=== PATIENT | female | born 1960 | race Hispanic/Latino ===

== ENCOUNTER 2017-02-21 13:52 | Observation (INO) | payer MEDICAID ==
[2017-02-21 13:52] VITALS: BMI 21.7
[2017-02-21 14:28] VITALS: RESP 16
--- NOTE | 2017-02-21 14:42 | ED PDOC ---
HPI: Back Time Seen by Provider: 02/21/17 14:29 Chief Complaint (Nursing): Back Pain Chief Complaint (Provider): Back Pain, left leg pain History Per: Patient History/Exam Limitations: no limitations Onset/Duration Of Symptoms: Days Current Symptoms Are (Timing): Still Present Quality Of Discomfort: "Pain" Previous Symptoms: Back Pain Associated Symptoms: None Additional Complaint(s): Rosanna Burrell, a 56 year old female who presents to the ED complaining of back pain radiating down her left leg. Patient is under the care of Dr. Foster, pain management and he gave patient trigger point injections last week in office. She was feeling better until yesterday when she developed severe pain to left leg. She called Dr. Foster's office and was told to come to ED today. Patient denies bowel/bladder incontinence. She takes oxycodone 30 mg and MS contin daily and these meds are not providing adequate pain relief. Patient denies any fall or trauma. PMD: Dr. Lew Past Medical History Reviewed: Historical Data, Nursing Documentation, Vital Signs Vital Signs: Last Vital Signs Temp 98.0 F 02/21/17 14:25 Pulse 93 H 02/21/17 14:25 Resp 16 02/21/17 14:25 BP 128/82 02/21/17 14:25 Pulse Ox 99 02/21/17 14:25 - Medical History PMH: Anxiety, Back Problems, Chronic Kidney Disease - Surgical History Surgical History: Back Surgery Other surgeries: Hysterectomy; lithotripsy, breast augmentation - Family History Family History: States: No Known Family Hx - Living Arrangements Living Arrangements: With Family - Social History Current smoker - smoking cessation education provided: Yes Alcohol: None Drugs: Denies - Home Medications Home Medications: Ambulatory Orders Medication Instructions Recorded Oxycodone HCl [Roxicodone] 30 mg PO Q8 PRN 07/31/14 Lactulose [Generlac] 10 gm PO DAILY 04/14/16 Morphine Sulfate [Ms Contin] 30 mg PO Q12 04/14/16 Oxycodone HCl [Roxicodone] 30 mg PO Q8 PRN 04/14/16 Varenicline Tartrate [Chantix] 1 mg PO BID 04/14/16 diaZEpam [Valium] 10 mg PO QID PRN 04/14/16 oxyCODONE [oxycodone Hydrochloride] 45 mg PO BID 04/14/16 - Allergies Allergies/Adverse Reactions: Allergies Allergy/AdvReac Type Severity Reaction Status Date / Time ketorolac Allergy HEADACHE Verified 04/14/16 11:25 Review of Systems ROS Statement: Except As Marked, All Systems Reviewed And Found Negative Constitutional: Negative for: Fever, Weakness Cardiovascular: Negative for: Chest Pain Gastrointestinal: Negative for: Vomiting Genitourinary Female: Negative for: Incontinence (Denies bowel and bladder incontinence) Musculoskeletal: Positive for: Back Pain (Back pain radiating down left leg) Neurological: Negative for: Weakness, Numbness, Incoordination Physical Exam - Reviewed Nursing Documentation Reviewed: Yes Vital Signs Reviewed: Yes - Physical Exam Appears: Positive for: Non-toxic, No Acute Distress Skin: Positive for: Normal Color, Warm, Dry. Negative for: Rash Eye Exam: Positive for: Normal appearance Neck: Positive for: Normal, Painless ROM Cardiovascular/Chest: Positive for: Regular Rate, Rhythm Respiratory: Positive for: Normal Breath Sounds Back: Positive for: Vertebral Tenderness (lower lumbar region), Other (positive straight left leg raise at 20 degrees). Negative for: L CVA Tenderness, R CVA Tenderness Neurologic/Psych: Positive for: Alert, Oriented - ECG O2 Sat by Pulse Oximetry: 99 (RA) Pulse Ox Interpretation: Normal - Other Rad MRI LS Spine X-Ray: Read By Radiologist X-Ray Interpretation: see below Medical Decision Making Medical Decision Making: Initial Impression: 56 year old female with back pain and left leg pain Initial Plan: Case was d/w Dr. Foster, pain management. He states to order MRI lumbar spine and give patient 1 mg IV dilaudid for pain. * Spinal Canal Lumbar w/o Cont * Dilaudid 1mg IV * NS 1000mls IV 1000mls/hr * Admit to ED observation MRI: T12-L1: No disc herniation, spinal canal stenosis or neural foraminal narrowing. L1-2: Mild generalized disc bulge is appreciated at L1-2 as well as prominent facet joint arthropathy resulting in [id number] bilateral lateral recess stenoses mild bilateral neural foraminal stenoses. No disc herniation identified. L2-3: At L2-3, a mild to moderate central canal stenosis caused by gross facet joint arthropathy and limited generalized disc bulging without disc herniation. Mild bilateral neural foraminal stenosis also identified. L3-4: No disc herniation is identified although mild central canal stenosis results from facet arthropathy combining with a jrcs-gv-karpdzsc generalized disc bulge causing [id number] central canal stenosis concentrated at the lateral recesses symmetrically. Mild bilateral neural foraminal stenosis identified. L4-5: No epidural defects are appreciated grossly Zoë though hardware generates artifact distorting the posterior epidural space to the right and somewhat anteriorly as well. The epidural spaces decompressed by bilateral L5 laminectomies. Neural foramina appear adequately patent as imaged. 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 No suspicious epidural defects are identified grossly. A tiny use meningocele is suggested at the left posterior epidural space. OTHER FINDINGS: None. IMPRESSION: 1. Bilateral laminectomies are identified at L5 and S1 with post spinal fusion from L4-S1 inclusively noted. 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 2. No interval disc herniation or severe spinal stenosis identified. 3. Multilevel degenerative central stenosis is appear mild to moderate severity at L2-3 and L3-4. ____ Scribe Attestation Documented by Adia Bentley acting as a scribe for Jihan Arrieta PA-C. Scribe Attestation All medical record entries made by the Scribe were at my direction and personally dictated by me. I have reviewed the chart and agree that the record accurately reflects my personal performance of the history, physical exam, medical decision making, and the department course for this patient. I have also personally directed, reviewed, and agree with the discharge instructions and disposition. ED OBSERVATION Date of observation admission: 02/21/17 Time of observation admission: 15:42 - Observation admission statement Patient is being placed in observation because:: Severe low back pain, sent by clock and watch hands painter. - Goals of Observation Goals of observation are:: Monitor patient and manage pain while awaiting work up for severe low back pain , MRI ordered. - Progress Note Progress Note: 02/21/17 15:43 Patient received IV dilaudid, states she feels better after med was given. Patient awaiting MRI 02/21/17 16:47 Patient returned from MRI, she states pain is adequately controlled at this time. MRI results pending. 02/21/17 17:38 Dr. Foster reviewd MRI report and states he will come to ED to see patient. 02/21/17 18:14 Dr. Foster at bedside states to given patient additional 1 mg IV dilaudid in ED and discharge patient. She will follow up with him this coming Tuesday in his office. [facility] [place] was contacted to arrange for transport for patient to go home. Disposition - Clinical Impression Clinical Impression: Lumbar radiculopathy - Patient ED Disposition Is Patient to be Admitted: No Counseled Patient/Family Regarding: Studies Performed, Diagnosis, Need For Followup - Disposition Disposition: Routine/Home Disposition Time: 18:38 Condition: IMPROVED
[2017-02-21] MEDS ORDERED: Sodium Chloride 0.9% 1,000 ML IV STA (14:43)
--- NOTE | 2017-02-21 17:07 | MRI ---
PROCEDURE: MR LUMBAR SPINE WITHOUT CONTRAST HISTORY: severe low back pain with radiation to left leg COMPARISON: None available. TECHNIQUE: Multiecho multiplanar sequences were performed through the lumbar spine without the use of intravenous contrast. FINDINGS: Lumbar curvature appears straightened in this patient status post bilateral laminectomies at L5 and likely S1 all with post spinal fusion appreciated by transpedicular screws and interconnecting rods from L4-S1 inclusively. No spondylolisthesis identified. Intervertebral fusion is also seen at L4-5 and L5-S1. Conus medullaris appears normal appearing at the T12-L1 disc interspace level. No suspicious marrow signal changes are grossly evident. Artifact from fusion hardware described above limits interpretation of the inferior lumbar spine somewhat. Prevertebral paraspinal soft tissues appear remarkable only for a an approximate 3.0 x 1.1 cm meningocele posterior to the right side of S1 and S2 posterior elements. No local reactive change associated. T12-L1: No disc herniation, spinal canal stenosis or neural foraminal narrowing. L1-2: Mild generalized disc bulge is appreciated at L1-2 as well as prominent facet joint arthropathy resulting in [id number] bilateral lateral recess stenoses mild bilateral neural foraminal stenoses. No disc herniation identified. L2-3: At L2-3, a mild to moderate central canal stenosis caused by gross facet joint arthropathy and limited generalized disc bulging without disc herniation. Mild bilateral neural foraminal stenosis also identified. L3-4: No disc herniation is identified although mild central canal stenosis results from facet arthropathy combining with a qcuq-bj-ygvudkpt generalized disc bulge causing [id number] central canal stenosis concentrated at the lateral recesses symmetrically. Mild bilateral neural foraminal stenosis identified. L4-5: No epidural defects are appreciated grossly Zoë though hardware generates artifact distorting the posterior epidural space to the right and somewhat anteriorly as well. The epidural spaces decompressed by bilateral L5 laminectomies. Neural foramina appear adequately patent as imaged. 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 No suspicious epidural defects are identified grossly. A tiny use meningocele is suggested at the left posterior epidural space. OTHER FINDINGS: None. IMPRESSION: 1. Bilateral laminectomies are identified at L5 and S1 with post spinal fusion from L4-S1 inclusively noted. 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 2. No interval disc herniation or severe spinal stenosis identified. 3. Multilevel degenerative central stenosis is appear mild to moderate severity at L2-3 and L3-4. .
[2017-02-21 18:58] VITALS: BP 124/66; PULSE 76; TEMP 98.7; O2SAT 98
== END 2017-02-21 18:57 | disposition home or self-care (01) ==
LOC: H.ER 13:52 → MERGE 15:35 → H.EROBSV 15:35
PROVIDERS: ADMIT Emergency Medicine; ATTEND Emergency Medicine
DX: M54.16 Radiculopathy, lumbar region (principal); M48.06 Spinal stenosis, lumbar region; F41.9 Anxiety disorder, unspecified; F17.200 Nicotine dependence, unspecified, uncomplicated; Z98.1 Arthrodesis status
CPT/HCPCS: 72148; 96360; 99283; G0378; J1170; J7040